=== PATIENT | male | born 1945 | race Caucasian/White ===

== ENCOUNTER 2018-06-24 00:59 | Emergency (ER) | payer MEDICARE, OTHER, SELFPAY ==
[2018-06-24 01:02] VITALS: BP 179/73; PULSE 83; RESP 18; TEMP 36.7; O2SAT 97; BMI 22.4
--- NOTE | 2018-06-24 01:27 | EKG12_ITS ---
Test Reason : NEURO SYMPTOMS Blood Pressure : / mmHG Vent. Rate : 090 BPM Atrial Rate : 090 BPM P-R Int : 148 ms QRS Dur : 106 ms QT Int : 376 ms P-R-T Axes : 053 028 041 degrees QTc Int : 459 ms Sinus rhythm with Premature atrial complexes Nonspecific T wave abnormality Abnormal ECG Confirmed by MARCIO DE LEON ([id number]), social media editor VIRGINIA DUENAS ([id number]) on 06/28/2018 2:10:45 PM Referred By: ZARIA Confirmed By:CHARLES DE LEON
--- NOTE | 2018-06-24 01:27 | CT_ITS ---
STUDY: CT BRAIN WITHOUT CONTRAST REASON FOR EXAM: Male, 73 years old. Weakness, difficulty swallowing RADIATION DOSAGE (If Supplied By Facility): CTDIvol = ( 44.99 ) mGy, DLP = ( 745.49 ) mGycm TECHNIQUE: Transaxial CT imaging of the brain was performed without administration of intravenous contrast material. Individualized dose optimization techniques were used for this CT. COMPARISON: No relevant priors. FINDINGS: Normal soft tissue structures. Normal calvarium. Normal size ventricles and extra-axial spaces for the patient's age. There are areas of decreased attenuation within the white matter tracts of the supratentorial brain, consistent with microvascular disease changes. Normal basal ganglia and thalami. Normal brainstem. Normal cerebellum. There is no intracranial hemorrhage. There are no findings of an acute ischemic infarction. 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 The bilateral mastoid air cells are clear.. CT/Brain/Head without Contrast IMPRESSION: Chronic involutional changes of the brain. There is no acute intracranial pathology. Electronically Signed: Laurel Sparrow MD at 2:57 EDT , Service support ,
--- NOTE | 2018-06-24 01:28 | CT_ITS ---
STUDY: CT SOFT TISSUE NECK WITH CONTRAST REASON FOR EXAM: Male, 73 years old. Weakness, difficulty swallowing TECHNIQUE: The patient was scanned in a multi-detector CT scanner. High resolution transaxial imaging was performed following intravenous administration of 100ML IV Isovue 300. Sagittal and coronal images were reconstructed. Streak artifact caused by the dental hardware. Individualized dose optimization techniques were used for this CT. COMPARISON: None. FINDINGS: Normal bilateral parotid glands. Normal bilateral fruit harvester spaces. Normal bilateral parapharyngeal spaces. Normal bilateral carotid spaces. Normal bilateral sublingual and submandibular glands and spaces. Normal visualized nasopharynx. Normal retropharyngeal space. Normal perivertebral space. Normal visualized bilateral faucial tonsils. The visualized tongue, tongue base and oropharynx are normal. The visualized cervical lymph nodes (levels I-) are within normal size limits, and maintain normal morphology. There is no demonstrated solid or cystic mass lesion. There is no abnormal contrast enhancement. Normal epiglottis, bilateral vallecula and hypopharynx. The pre-epiglottic and paraglottic adipose spaces are normal. Normal visualized right piriform sinuses, bilateral aryepiglottic folds, vocal cords, and arytenoid-cricoid articulations. Minimal effacement of the left piriform sinus. Normal subglottic trachea. Normal bilateral lobes of the thyroid gland. Normal visualized pulmonary apices. Aplastic right frontal sinus. Minimal mucosal thickening of the left maxillary antrum. The bilateral mastoid air cells are clear. There is multilevel degenerative changes of the cervical spine. There is demineralization of osseous structures. Left vertebral artery is arising directly from the aortic arch is a vascular variant. CT/Soft Tissue Neck WITH Contrast IMPRESSION: Minimal effacement of the left piriform sinus. Etiology indeterminate. Consultation with ENT recommended. No abscess, collection or airway compromise. Other nonacute findings as outlined above. Electronically Signed: Laurel Sparrow MD at 3:04 EDT , Service support ,
[2018-06-24 01:43] LABS: Absolute Lymphocyte Count 1.24 X10^3/ul (0.83-4.51); Absolute Neutrophil Count 3.9 X10^3/uL (2.0-7.7); Basophil# 0.01 X10^3/uL; Basophil% 0.2 % (0-1); Eosinophil# 0.05 X10^3/uL; Eosinophils% 0.9 % (0-5); Hematocrit 45.5 % (40-54); Hemoglobin 15.3 g/dl (13.0-16.5); Lymphocyte # 1.24 X10^3/ul (4.0); Lymphocyte % 22.1 % (19-41); Mean Corp Hgb Conc 33.6 g/gl (32-36); Mean Corpuscular Hgb 29.7 pg (27.0-32.0); Mean Corpuscular Volume 88.2 fL (80-94); Mean Platelet Vol. 9.9 fl (6.2-12.0); Monocyte# 0.37 X10^3/uL; Monocyte% 6.6 % (0-10); Neutrophil # 3.93 X10^3/uL (2.7-7.7); Neutrophil % 70.2 % (47-70); Platelet Count 173 K/mm3 (150-450); RBC Distribution Width CV 13.6 % (11.6-14.6); RBC Distribution Width SD 43.7 fl (35.1-43.9); Red Blood Count 5.16 M/mm3 (4.6-6.2); White Blood Count 5.6 K/mm3 (4.4-11.0)
[2018-06-24 01:44] LABS: POSITIVE COUNT NO; POSITIVE DIFFERENTIAL NO; POSITIVE MORPHOLOGY NO
[2018-06-24 02:12] LABS: Anion Gap 9 (5-15); BUN 18 mg/dL (7-18); BUN/Creat Ratio 19.7 RATIO (10-20); Calcium,Total 9.2 mg/dL (8.5-10.1); Chloride 106 mmol/L (98-107); Creatinine, Serum 0.92 mg/dL (0.70-1.30); EST Glomerular Filtration Rate 86 mL/min (>60); Est Glom Filt Rate - Afr Amer 104 mL/min (>60); Estimated Creatinine Clearance 56.69 ml/min; Glucose 94 mg/dL (74-106); Potassium 3.8 mmol/L (3.5-5.1); Sodium Level 141 mmol/L (136-145)
--- NOTE | 2018-06-24 02:21 | ED.VISSUMM ---
- ER Visit Summary Date of Service: 06/24/18 Chief Complaint: Difficulty swallowing History of Present Illness: The patient is a 73 M with a 2-week history of difficulty swallowing. Patient states he had cold symptoms for approximately 6 weeks and about the time they started to improve he started noting difficulty swallowing. He also noted increased salivation. He states he feels like things get caught in his throat when he tries to swallow. He denies speech difficulty. He was seen by nurse practitioner at his PCPs office today who recommended a special mouthwash and Flonase. Symptoms seemed worse tonight so he came to the emergency room. Physical Examination: Blood pressure is 179/73, otherwise vitals normal. Patient is lying in bed with his head elevated approximately 45 degrees. He speaks with a strong voice and is tolerating secretions well. Head neck examination is unremarkable. Heart is regular rate and rhythm. Lung sounds are clear. Abdomen is soft and nontender. Neuro exam reveals an NIH of 0. Test Results: EKG is sinus at 90 with no sign of acute ischemia. CBC and chemistry studies are normal. CT brain shows chronic involutional changes. CT neck with IV contrast reveals minimal effacement of the left piriform sinus, etiology indeterminate. There is no evidence of abscess or airway compromise. No other abnormalities. Emergency Department Course and Treatment: On repeat evaluation patient is resting comfortably. Nursing staff did do a bedside swallow with him. He was able to swallow the applesauce, but states he feels like it got stuck in the back of his throat. He is able to drink water and get it to clear. Nursing staff advises there is no coughing or clearing of his throat to suggest aspiration. At this time patient be referred to ENT for close follow-up. Treatment Plan: [] Disposition: Discharge Impression: Dysphasia This note was generated with Case [employer]over dictation software. It may contain incorrect words, spelling, and punctuation that were not noted in review of the chart prior to signing ED Disposition - Plan for ED Patient: Disposition: Home or Assisted Living Instructions: Understanding Dysphagia Referrals: Sandip Hunt MD [Primary Care Provider] - Dorian Minaya MD [STAFF PHYSICIAN] - As soon as possible
[2018-06-24 03:08] VITALS: BP 153/80; PULSE 75; RESP 12; O2SAT 97
--- NOTE | 2018-06-24 03:41 | ED.RN ---
PT STATES SOME OF THE APPLE SAUCE STICKS IN THE BACK. PT DRINKS WATER AND NO LONGER C/O ISSUES. NO COUGH, CLEARING THE THROAT. NO DIFFICULTY WITH THE WATER. ONE SWALLOW OF WATER EACH TIME AND PT REPORT APPLE SAUCE GOING DOWN. DR ENCISO NOTIFIED
[2018-06-24 03:56] VITALS: BP 171/97; PULSE 79; RESP 13; O2SAT 95
== END 2018-06-24 03:57 | disposition home or self-care (01) ==
PROVIDERS: Emergency Provider Emergency Medicine; Family Provider Family Medicine; PCP Family Medicine
DX: R47.02 Dysphasia (principal)
CPT/HCPCS: 70450; 70491; 80048; 85025; 93005; 99284; Q9967; A4216

== ENCOUNTER 2020-05-05 08:23 | Emergency (ER) | payer MEDICARE, OTHER, SELFPAY ==
[2020-05-05 08:24] VITALS: BP 182/93; PULSE 69; RESP 17; TEMP 36.6; O2SAT 97; BMI 23.6
--- NOTE | 2020-05-05 08:36 | ED.DCSUM_ITS ---
History of Present Illness Chief Complaint: Flank Pain Informant: Patient Narrative: 74-year-old male presenting with left flank pain that radiates to his left groin. Patient states this started yesterday about 1 PM. The pain waxes and wanes. He states it feels sharp like previous kidney stone he had distantly. He does not have a urologist. He denies dysuria or hematuria. He denies constipation or diarrhea. Has not had fever or chills. He denies nausea or vomiting. Past Medical History - Allergies and Home Meds Allergies/Adverse Reactions: Allergies acetaminophen [From NyQuil] Allergy (Verified 05/05/20 08:24) Other dextromethorphan [From NyQuil] Allergy (Verified 05/05/20 08:24) Other doxylamine [From NyQuil] Allergy (Verified 05/05/20 08:24) Other pseudoephedrine [From NyQuil] Allergy (Verified 05/05/20 08:24) Other Sulfa (Sulfonamide Antibiotics) Allergy (Verified 05/05/20 08:24) Hives Primary Care Physician: Sandip Hunt MD [Primary Care Provider] - Prior records reviewed: Yes Past Medical History: - - Renal calculi Surgical History: - - Lithotripsy Lives: Alone Smoking Status: Never smoker Alcohol: None Drugs: None Review of Systems General: Denies: Chills, Fever, Sweats Eyes: Denies: Visual changes - bilaterally, Diplopia ENT: Denies: Rhinorrhea, Sore throat Cardiovascular: Denies: Chest pain, Palpitations Respiratory: Denies: Dyspnea, Cough, Dyspnea on exertion Gastrointestinal: Denies: Abdominal pain, Nausea, Vomiting, Diarrhea, Constipation Genitourinary: Denies: Dysuria, Hematuria Musculoskeletal: Reports: Back pain - Left flank. Denies: Myalgias, Arthralgias Skin: Denies: Rash, Abscess, Abrasions Neurological: Denies: Headache, Weakness Psych: Denies: Depression, Anxiety Physical Exam Vital Signs/Narrative: Vital Signs Temp Pulse Resp BP Pulse Ox 05/05/20 08:24 97.9 F 69 17 182/93 H 97 General: Well nourished, Well developed, No Acute Distress Head: Normocephalic, Atraumatic Eyes: Perrl, EOMI ENT: Moist mucous membranes, No rhinorrhea Neck: Supple, Nontender Cardiovascular: Regular rate, Regular rhythm, No murmurs Respiratory: No distress, CTA bilaterally, Chest nontender Abdomen: Soft, Nontender, Nondistended, Normal bowel sounds Back: CVA tenderness. Negative for: Spinal tenderness Extremities: Nontender, No edema Skin: Normal color, No rash Neurological: Alert, Oriented x3, Cranial nerves II-XII grossly intact Psychological: Normal affect, Normal Mood Diagnostic/Tx/Re-eval Clinical Impression(s) from Imaging Studies Abdomen/Pelvis CT 05/05/20 09:08 IMPRESSION: 1. 3 mm obstructing stone at the left ureterovesical junction with moderate ureteral dilatation and hydronephrosis. 2. Suspect gastroenteritis or sclerosing mesenteritis. 3. Left periaortic lymphadenopathy possibly reactive or secondary to the tumor including metastatic disease or lymphoma. Correlation with PET CT scan may be useful. Electronically Signed: James Gray MD at 9:40 EST Tel , Service support , Laboratory Data 05/05/20 05/05/20 05/05/20 08:46 08:46 09:10 WBC 6.7 RBC 5.64 Hgb 16.5 Hct 50.9 MCV 90.2 MCH 29.3 MCHC 32.4 RDW Std Deviation 43.2 RDW Coeff of Benja 13.2 Plt Count 148 L MPV 9.9 Immature Gran % (Auto) 0.300 Neut % (Auto) 70.2 H Lymph % (Auto) 17.1 L [place] % (Auto) 12.3 H Eos % (Auto) 0.0 Baso % (Auto) 0.1 Absolute Neuts (auto) 4.7 Absolute Lymphs (auto) 1.14 Nucleated RBC % 0 Sodium 139 Potassium 4.0 Chloride 104 Carbon Dioxide 28.0 Anion Gap 7 BUN 20 H Creatinine 1.74 H Estim Creat Clear Calc 29.52 Est GFR (MDRD) Af Amer 49 L Est GFR (MDRD) Non-Af 41 L BUN/Creatinine Ratio 11.5 Glucose 106 Calcium 9.7 Urine Color Yellow Urine Clarity Clear Urine pH 6.0 Ur Specific [place] 1.025 Urine Protein Negative Urine Glucose (UA) Normal Urine Ketones 50 H Urine Occult Blood 25 H Urine Nitrite Negative Urine Bilirubin Negative Urine Urobilinogen Normal Ur Leukocyte Esterase 500 H Urine RBC 0 SEEN Urine WBC 5-10 SEEN Ur Squamous Epith Cells 0-5 SEEN Urine Bacteria RARE Urine Mucus 0 SEEN - Medical Decision Making 74-year-old male presenting with left flank pain. He has no nausea. He states he has no other symptoms. He is eating and drinking normally. He is making normal urine and stool. Patient has been afebrile. Patient has distant history of renal calculi and had to have lithotripsy. CBC shows white blood cell count 6.7 hemoglobin 16.5 platelets 148 and previously 173 in 2019. Electrolytes are normal, creatinine is 1.74 and has increased from 0.92 since 06/2014. GFR is also decreased from 86-41 since the same date. UA is negative for nitrites there is 25 and occult blood, 500 leukocyte esterase and rare bacteria. Patient CT abdomen pelvis shows a 3 mm obstructing stone at the left UVJ with some mild ureteral dilatation as well as hydronephrosis which is mild as interpreted by radiology. Patient also has suspicious left periaortic lymphadenopathy that the radiologist feels could be reactive however does not rule out a tumor or metastatic disease versus lymphoma. I did speak with the radiologist and he states that this was abnormal he is not sure what the source would be however he speculated possibly colon cancer, prostate cancer, testicular cancer. Patient is not having any difficulty with stool, testicular pain, difficulty urinating. he has not had perirectal pain. I did speak with Dr. Fox who is on-call for Sandip Hunt. Patient does have acute kidney injury from previous however it does not appear to be prerenal azotemia. Likely this could be from his elevated blood pressure. Dr. Fox did feel that we could start him on amlodipine 10 mg and he could follow-up with him or Sandip Hunt on Thursday for repeat evaluation. He will also arrange follow-up for possible PET scan due to abnormal lymph node finding on Thursday as well. He was counseled to keep a blood pressure diary as best that he can. Patient does have a kidney stone and will be given follow-up with Dr. Linton. He does have some suspicion for infection he will be given Keflex, [place]. I will withhold Flomax at this time due to JAYCOB. This is small and will likely pass. Patient and family were informed of all findings. They are comfortable with discharge. They are given return precautions. Impression: 1. 3 mm left VJ stone 2. UTI 3. Hypertension?new begin treatment 4. Acute kidney injury 5. Abnormal CT abdomen pelvis ED Disposition - Plan for ED Patient: Disposition: Home or Assisted Living Instructions: ED Kidney Stone w/ Colic, ED Urinary Tract Infections in Men, Kidney Problems, ED Hypertension, New (Begin Treatment) Prescriptions: Cephalexin [Keflex] 500 mg PO Q6 #40 cap Prescription Printed Hydrocodone Bitart/Apap 5-325 [[place] 5MG-325MG] 1 tablet PO Q6H PRN PRN 3 Days #12 tablet PRN Reason: Pain Amlodipine [Norvasc] 10 mg PO DAILY #30 tab Prescription Printed Referrals: Sandip Hunt MD [Primary Care Provider] - Manish Linton MD [STAFF PHYSICIAN] -
[2020-05-05 08:54] LABS: Absolute Lymphocyte Count 1.14 X10^3/uL (0.83-4.51); Absolute Neutrophil Count 4.7 X10^3/uL (2.0-7.7); Basophil# 0.01 X10^3/uL; Basophil% 0.1 % (0-1); Hematocrit 50.9 % (40-54); Hemoglobin 16.5 g/dL (13.0-16.5); Lymphocyte # 1.14 X10^3/ul (4.0); Lymphocyte % 17.1 % (19-41); Mean Corp Hgb Conc 32.4 g/dL (32-36); Mean Corpuscular Hgb 29.3 pg (27.0-32.0); Mean Corpuscular Volume 90.2 fL (80-94); Mean Platelet Vol. 9.9 fl (6.2-12.0); Monocyte# 0.82 X10^3/uL; Monocyte% 12.3 % (0-10); NRBC Flagged by Analyzer 0 % (0-5); Neutrophil # 4.68 X10^3/uL (2.7-7.7); Neutrophil % 70.2 % (47-70); Platelet Count 148 K/mm3 (150-450); RBC Distribution Width CV 13.2 % (11.6-14.6); RBC Distribution Width SD 43.2 fl (35.1-43.9); Red Blood Count 5.64 M/mm3 (4.6-6.2); White Blood Count 6.7 K/mm3 (4.4-11.0)
[2020-05-05] MEDS: Ondansetron 4 MG/2 ML Vial IV (08:56)
[2020-05-05] MEDS: Ketorolac 15 MG/ML Vial IV (08:56)
[2020-05-05] MEDS: Morphine 4 MG/ML Syringe IV (08:57)
[2020-05-05 09:04] VITALS: BP 204/111; PULSE 76; RESP 16; O2SAT 98
[2020-05-05 09:04] LABS: Anion Gap 7 (5-15); BUN 20 mg/dL (7-18); BUN/Creat Ratio 11.5 RATIO (10-20); Calcium,Total 9.7 mg/dL (8.5-10.1); Chloride 104 mmol/L (98-107); Creatinine, Serum 1.74 mg/dL (0.70-1.30); EST Glomerular Filtration Rate 41 mL/min (>60); Est Glom Filt Rate - Afr Amer 49 mL/min (>60); Estimated Creatinine Clearance 29.52 ml/min; Glucose 106 mg/dL (74-106); Sodium Level 139 mmol/L (136-145)
--- NOTE | 2020-05-05 09:08 | CT_ITS ---
STUDY: CT ABDOMEN AND PELVIS WITHOUT CONTRAST REASON FOR EXAM: Male, 74 years old. left flank pain RADIATION DOSAGE (If Supplied By Facility): CTDIvol = ( 6.08 ) mGy, DLP = ( 285.78 ) mGycm TECHNIQUE: Transaxial images were obtained from the dome of the diaphragm to the symphysis pubis without oral contrast, and without intravenous contrast. Sagittal and coronal images were reconstructed. Individualized dose optimization techniques were used for this CT. COMPARISON: None. FINDINGS: The visualized lung bases are unremarkable. The visualized portions of the heart are within normal limits. Normal liver. Normal gallbladder and extrahepatic biliary system. Normal spleen. Normal pancreas. Normal bilateral adrenal glands. 2 mm nonobstructing stone in the upper pole the right kidney. 3 mm obstructing stone at the left ureterovesical junction with moderate ureteral dilatation and hydronephrosis. Parapelvic cysts of both kidneys. Normal visualized stomach. Several small lymph nodes in the stranding of the fat of the small bowel mesentery in the left upper quadrant may be secondary to gastroenteritis or sclerosing mesenteritis. Normal colon. The appendix is visualized and appears normal. Normal abdominal aorta. Normal inferior vena cava. Periaortic lymphadenopathy measuring 3 x 3 cm. Normal urinary bladder. There are prostatic calcifications. Normal abdominal wall. Normal osseous structures. CT/Abdomen/Pelvis without Cont IMPRESSION: 1. 3 mm obstructing stone at the left ureterovesical junction with moderate ureteral dilatation and hydronephrosis. 2. Suspect gastroenteritis or sclerosing mesenteritis. 3. Left periaortic lymphadenopathy possibly reactive or secondary to the tumor including metastatic disease or lymphoma. Correlation with PET CT scan may be useful. Electronically Signed: James Gray MD at 9:40 EST Tel , Service support ,
[2020-05-05 09:21] LABS: Mucous, Urine 0 SEEN /hpf (<or=2+); Red Blood Cells-Urine 0 SEEN /hpf (0-5)
[2020-05-05 09:45] LABS: Color, Urine Yellow (Yellow); Glucose, Dipstick Normal (Normal); Ketone-Dipstick 50 mg/dl (Negative); Leukocyte Esterase-Dipstick 500 /ul (Negative); Nitrite-Dipstick Negative (Negative); Occult Blood-Urine 25 /ul (Negative); Protein-Dipstick Negative (Negative); Specific Gravity, Urine 1.025 (1.002-1.030); Urine Bilirubin Dipstick Negative (Negative); Urine Clarity Clear (Clear); Urine Urobilinogen Normal (Normal)
[2020-05-05 09:52] LABS: Bacteria RARE /hpf (None Seen); Squamous Epithelial Cells - UA 0-5 SEEN /hpf (0-5); White Blood Cells 5-10 SEEN /hpf (0-5)
--- NOTE | 2020-05-05 10:02 | NURSING ---
ATTEMPTING TO REACH RADIOLOGY DR THAT READ CT.
--- NOTE | 2020-05-05 10:18 | NURSING ---
DR THOMPSON PAGED OC FOR DR VEGA
[2020-05-05] MEDS: HYDROcodone Bitartrate/Apap 5/325 Tablet PO (11:14)
[2020-05-05] MEDS: amLODIPine 10 MG Tablet PO (11:14)
[2020-05-05] MEDS: Cephalexin 250 MG Capsule 500 MG PO (11:14)
[2020-05-05 11:19] VITALS: BP 166/75; PULSE 70; RESP 16; O2SAT 98
[2020-05-05 11:36] VITALS: BP 189/83; PULSE 70; RESP 18; O2SAT 97
== END 2020-05-05 11:37 | disposition home or self-care (01) ==
PROVIDERS: Emergency Provider Student in an Organized Health Care Education/Training Program; PCP Family Medicine
DX: N13.2 Hydronephrosis with renal and ureteral calculous obstruction (principal); N39.0 Urinary tract infection, site not specified; N17.9 Acute kidney failure, unspecified; I10 Essential (primary) hypertension; Z87.442 Personal history of urinary calculi; Z88.2 Allergy status to sulfonamides
CPT/HCPCS: 74176; 80048; 81001; 85025; 96374; 96375; 99283; A4216; J2405

== ENCOUNTER → 2020-05-14 13:00 | Outpatient (CLI) | payer MEDICARE, OTHER, SELFPAY ==
[2020-05-14 12:37] VITALS: BMI 22.1
[2020-05-14 13:34] LABS: Erythrocyte Sedimentation Rate 5 mm/hr (0-20)
[2020-05-14 13:35] LABS: Absolute Lymphocyte Count 1.12 X10^3/uL (0.83-4.51); Absolute Neutrophil Count 3.8 X10^3/uL (2.0-7.7); Basophil# 0.06 X10^3/uL; Basophil% 1.1 % (0-1); Eosinophil# 0.12 X10^3/uL; Eosinophils% 2.1 % (0-5); Hematocrit 49.4 % (40-54); Hemoglobin 15.8 g/dL (13.0-16.5); Lymphocyte # 1.12 X10^3/ul (4.0); Lymphocyte % 19.8 % (19-41); Mean Corpuscular Hgb 28.8 pg (27.0-32.0); Mean Corpuscular Volume 90.1 fL (80-94); Mean Platelet Vol. 10.2 fl (6.2-12.0); Monocyte# 0.54 X10^3/uL; Monocyte% 9.6 % (0-10); NRBC Flagged by Analyzer 0 % (0-5); Neutrophil % 67.2 % (47-70); Platelet Count 196 K/mm3 (150-450); RBC Distribution Width CV 12.7 % (11.6-14.6); RBC Distribution Width SD 42.3 fl (35.1-43.9); Red Blood Count 5.48 M/mm3 (4.6-6.2); White Blood Count 5.7 K/mm3 (4.4-11.0)
[2020-05-14 14:03] LABS: ALB/GLOB Ratio 1.2 RATIO (0.9-2.4); AST(SGOT) 16 U/L (15-37); Alanine Aminotransfer ALT/SGPT 28 U/L (16-61); Albumin, Serum 3.9 g/dL (3.2-5.0); Alkaline Phosphatase 68 U/L (45-117); Anion Gap 1 (5-15); BUN 16 mg/dL (7-18); BUN/Creat Ratio 16.6 RATIO (10-20); CRP < 2.90 mg/L (0.0-3.0); Calcium,Total 9.5 mg/dL (8.5-10.1); Chloride 109 mmol/L (98-107); Creatinine, Serum 0.96 mg/dL (0.70-1.30); EST Glomerular Filtration Rate 81 mL/min (>60); Est Glom Filt Rate - Afr Amer 98 mL/min (>60); Globulin 3.3 g/dL (2.2-4.2); Glucose 108 mg/dL (74-106); Lipase 96 U/L (73-393); PSA,Total - Annual Screen 1.83 ng/mL (0.00-4.00); Potassium 4.2 mmol/L (3.5-5.1); Protein, Total 7.2 g/dL (6.4-8.2); Sodium Level 141 mmol/L (136-145); Thyroid Stim Hormone (TSH) 1.13 uIU/mL (0.358-3.74)
[2020-05-16 16:51] LABS: ANTINUCLEAR ANTIBODIES DIRECT Negative (Negative)
== END ==
PROVIDERS: PCP Family Medicine; Referring Provider Surgery; Visit Provider Surgery
DX: R13.10 Dysphagia, unspecified (principal); R59.1 Generalized enlarged lymph nodes; Z12.5 Encounter for screening for malignant neoplasm of prostate
CPT/HCPCS: 36415; 80053; 83690; 84153; 84443; 85025; 85652; 86038; 86140; G0103

== ENCOUNTER 2020-05-18 09:12 | Day surgery (SDC) | payer MEDICARE, OTHER, SELFPAY ==
[2020-05-14 12:37] VITALS: BMI 22.1
--- NOTE | 2020-05-18 09:25 | PCM.HP.BLA ---
Problem List (1) Lymphadenopathy Status: Acute History and Physical Date of Admission: 05/18/20 Intake Visit Reasons: Discuss Colonoscopy Allergies dextromethorphan [From NyQuil] Allergy (Verified 05/14/20 12:38) Other doxylamine [From NyQuil] Allergy (Verified 05/14/20 12:38) Other pseudoephedrine [From NyQuil] Allergy (Verified 05/14/20 12:38) Other Sulfa (Sulfonamide Antibiotics) Allergy (Verified 05/14/20 12:38) Hives Medications Multivitamin with Minerals [Multiple Vitamin] 1 tablet PO DAILY 06/24/18 [History Confirmed 05/14/20] Amlodipine [Norvasc] 10 mg PO DAILY #30 tab 05/05/20 [Rx Confirmed 05/14/20] Cephalexin [Keflex] 500 mg PO Q6 #40 cap 05/05/20 [Rx Confirmed 05/14/20] aspirin 81 mg tablet,delayed release 81 mg PO DAILY 05/14/20 [History Confirmed 05/14/20] coenzyme Q10 100 mg capsule 100 mg PO DAILY 05/14/20 [History Confirmed 05/14/20] hydrocodone 10 mg-acetaminophen 325 mg tablet 1 tablet PO QHS PRN 05/14/20 [History Confirmed 05/14/20] psyllium husk 0.4 gram capsule 0.4 gm PO DAILY 05/14/20 [History Confirmed 05/14/20] sennosides 8.6 mg-docusate sodium 50 mg capsule 1 tab-cap PO QHS 05/14/20 [History Confirmed 05/14/20] valsartan 80 mg tablet 80 mg PO DAILY 05/14/20 [History Confirmed 05/14/20] [facility] Medical History (Updated 05/14/20 @ 12:48 by Shavonne Wiggins) Lymphadenopathy (Acute) Dysphagia (Acute) Constipation (Acute) Kidney stone on left side (Acute) Mesenteric adenitis (Acute) Hypertension (Chronic) Surgical History (Updated 05/14/20 @ 12:36 by Shavonne Wiggins) History of tonsillectomy and adenoidectomy (Acute) Family History (Updated 05/14/20 @ 12:37 by Shavonne Wiggins) Brother Heart disease Hypertension Father Lung cancer Mother Heart disease Hypertension CVA (cerebral vascular accident) Social History (Updated 05/14/20 @ 12:[address] Rell Griggs MD) Smoking Status: Never smoker second hand exposure: No alcohol intake: never substance use type: does not use caffeine: Yes what type of physical activity do you participate in: bicycling frequency: 3-4 times per week HPI HPI HPI: EDILSON JACKSON, is a 74 M who presents to the office today for surgical consultation regarding resolve left flank pain with suspected kidney stone albeit with left periaortic adenopathy identified at that time. The patient is referred by Dr. Sandip Hunt and a written copy of my surgical consult and recommendations will be returned to him. The patient otherwise feels well. The left flank pain is resolved. He was treated with oral antibiotics cephalexin and pain medication. He has had a previous remote history of left kidney stones treated remotely. He currently denies any flank pain. He recognizes he may not stay as hydrated. The CT scan dated May 05, 2020 however demonstrates 3 x 3 cm left periaortic adenopathy. Etiology is not clear. The patient denies fever or chills or sweats or unexpected weight loss. His abdominal pain is completely resolved. He has no family history of colon polyps or colon cancer. He has never had a colonoscopy. He is not having bright red blood per rectum or melena. He otherwise feels energetic The patient states that he has not been a tobacco user. He rarely uses alcohol. [facility] Imaging Services [address] [place] [address] Abdomen/Pelvis without Cont MR#: [id number] Name: EDILSON JACKSON [facility] #:[id number] : 1945M 74 From: Edilson Gray MD PCP:Dr. Sandip Hunt MD Status:[facility] ER Study:Abdomen/Pelvis without Cont Date of Exam:05/05/20 Exam#[id number] Ordering Dr: Ayden Trammell DO STUDY: CT ABDOMEN AND PELVIS WITHOUT CONTRAST REASON FOR EXAM: Male, 74 years old. left flank pain RADIATION DOSAGE (If Supplied By Facility): CTDIvol = ( 6.08 ) mGy, DLP = ( 285.78 ) mGycm TECHNIQUE: Transaxial images were obtained from the dome of the diaphragm to the symphysis pubis without oral contrast, and without intravenous contrast. Sagittal and coronal images were reconstructed. Individualized dose optimization techniques were used for this CT. COMPARISON: None. FINDINGS: The visualized lung bases are unremarkable. The visualized portions of the heart are within normal limits. Normal liver. Normal gallbladder and extrahepatic biliary system. Normal spleen. Normal pancreas. Normal bilateral adrenal glands. 2 mm nonobstructing stone in the upper pole the right kidney. 3 mm obstructing stone at the left ureterovesical junction with moderate ureteral dilatation and hydronephrosis. Parapelvic cysts of both kidneys. Normal visualized stomach. Several small lymph nodes in the stranding of the fat of the small bowel mesentery in the left upper quadrant may be secondary to gastroenteritis or sclerosing mesenteritis. Normal colon. The appendix is visualized and appears normal. Normal abdominal aorta. Normal inferior vena cava. Periaortic lymphadenopathy measuring 3 x 3 cm. Normal urinary bladder. There are prostatic calcifications. Normal abdominal wall. Normal osseous structures. CT/Abdomen/Pelvis without Cont IMPRESSION: 1. 3 mm obstructing stone at the left ureterovesical junction with moderate ureteral dilatation and hydronephrosis. 2. Suspect gastroenteritis or sclerosing mesenteritis. 3. Left periaortic lymphadenopathy possibly reactive or secondary to the tumor including metastatic disease or lymphoma. Correlation with PET CT scan may be useful. Electronically Signed: Edilson Gray MD at 9:40 EST Tel , Service support , HPI HPI HPI: EDILSON MANUEL, is a 74 M who presents to the office today for Exam Const General: cooperative, healthy appearing, comfortable, no acute distress Nutritional Appearance: average body habitus Orientation: alert, awake [facility] Head: normal to inspection Eyes General: appearance normal, both eyes and all related structures Resp Effort & Inspection: normal respiratory effort Auscultation: clear to auscultation bilaterally Cardio Rate: regular rate GI Palpation: soft, no hepatosplenomegaly Auscultation: normal bowel sounds Musc Cervical Spine: normal cervical lordosis Skin General: no rashes or lesions noted Neuro Cognition: normal cognition Extrem General: no calf tenderness Psych Affect: normal affect Assessment & Plan Problems 1. Lymphadenopathy R59.1 Plan 74-year-old gentleman who had an episode of left flank pain felt to be secondary to obstructive ureteral lithiasis. There is a 3 x 3 cm left periaortic lymph node advantage of etiology. I concur that it seems reasonable to proceed with a colonoscopy with possible biopsy or polypectomy as indicated. The patient is aware of the technique, benefit, risk, alternatives. Laboratory has been ordered as requested per Dr. Hunt's office. We will add a PSA level to that. If the colonoscopy is nonresolving then might consider a CT scan guided biopsy of the periaortic adenopathy. The patient has had an opportunity to ask and have questions answered. We will schedule procedure at his discretion. I very much appreciate the kind opportunity of assisting with the surgical care. Orders Orders: CRP Today R59.1 Lipase Today R59.1 PSA,Total - Annual Screen Today Z12.5 Thyroid Stim Hormone (TSH) Today R13.10, R59.1 CBC W/Diff, Automated Today R59.1 Erythrocyte Sed Rate Today R59.1 ANTINUCLEAR ANTIBODIES DIRECT Today R59.1 Comprehensive Metabolic Profil Today R59.1 Medications New: valsartan 80 mg PO DAILY psyllium husk (Fiber (psyllium husk)) 0.4 grams PO DAILY sennosides-docusate sodium 8.6-50 mg (Senna Plus) 1 tab-cap PO QHS hydrocodone-acetaminophen 10-325 mg ([place]) 1 TAB PO QHS PRN Coding Level of Care Code 64091 Diagnoses Lymphadenopathy R59.1 I have re-examined the patient. There are no clinical changes since date of exam. Procedure Criteria Procedure Type: Elective COVID Risk Discussion: The surgeon/proceduralist and patient have discussed in detail the risk of exposure to and/or potential harm posed by the COVID-19 virus with having a surgery/procedure at this time versus the risk of delaying the surgery/procedure. It is not possible to know either the risk of delaying the surgery or procedure or chance of getting an infection with perfect accuracy, but a joint decision was made between the patient and the surgeon/proceduralist to proceed at this time with the scheduled surgery/procedure as indicated on the consent form.
[2020-05-18 09:51] VITALS: BP 132/67; PULSE 71; RESP 14; TEMP 37.2; O2SAT 100; BMI 22.9
[2020-05-18] MEDS: Lactated Ringers 1,000 ML 100 ML IV (10:05)
--- NOTE | 2020-05-18 10:15 | COLBX_PTH ---
PATIENT: EDILSON JACKSON LOC: EN U#:[id number] AGE/SX: 75/M ROOM: RE05/18/[address]: Dr. Rell Griggs MD : 1945 BED: DIS: 05/18/2020 SPEC #: [id number] RECD: 05/18/20 11:46 STATUS: BIA AVINASH #: [id number] JUSTIN: 05/18/20 10:[address]: Rell Griggs DEPT: SURGICAL PATHOLOGY RECD BY: Kenzie Perkins ENTERED: 05/18/20 12:30 SP TYPE: COLON BX DINO DR: Dr. Sandip Hunt MD Tissues: A - Transverse colon B - Transverse colon Procedures: Surgery Specimen Level IV HEADER OPERATION: Colonoscopy (MAC) PRE-OP DIAGNOSIS: Lymphadenopathy TISSUE SUBMITTED: A - Polyp proximal transverse biopsy, B - Mid transverse biopsy MICROSCOPIC DIAGNOSIS A. Proximal transverse colon polyp, biopsy: Fragments of tubular adenoma. B. Mid transverse colon, biopsy: Fragments of tubular adenoma. AM:dov 05/21/2020 MICROSCOPIC DESCRIPTION Slides are reviewed. GROSS DESCRIPTION A - Received in fixative is one container labeled with the patient's name and designated polyp proximal transverse biopsy. The specimen consists of two irregular fragments of light gabriel soft tissue that in aggregate measure 0.6 x 0.2 x 0.1 cm. The specimen is totally submitted in one cassette. B - Received in fixative is one container labeled with the patient's name and designated mid transverse biopsy. The specimen consists of one irregular fragment of light gabriel soft tissue that measures 0.3 x 0.3 x 0.1 cm. The specimen is totally submitted in one cassette. / SJ:dov 05/18/20 TC:5 CPT: 47908 x2
[2020-05-18 10:57] VITALS: BP 128/58; BP 132/67; PULSE 81; RESP 18; TEMP 36.1; O2SAT 99
[2020-05-18 11:00] VITALS: BP 132/67; BP 132/79; PULSE 74; RESP 16; O2SAT 99
--- NOTE | 2020-05-18 11:03 | OP.COLON_ITS ---
Patient Name: James Joyner Procedure Date: 05/18/2020 10:24 AM Date of : 1945 Age: 75 Procedure: Colonoscopy Indications: Abdominal pain in the left lower quadrant Providers: Rell Griggs MD Referring MD: Sandip Hunt Medicines: See the Anesthesia note for documentation of the administered medications Patient Profile: Last Colonoscopy: none. The patient's first colonoscopy is today. Complications: No immediate complications. Procedure: Pre-Anesthesia Assessment: - Prior to the procedure, a History and Physical was performed, and patient medications and allergies were reviewed. The patient's tolerance of previous anesthesia was also reviewed. The risks and benefits of the procedure and the sedation options and risks were discussed with the patient. All questions were answered, and informed consent was obtained. Prior Anticoagulants: The patient has taken no previous anticoagulant or antiplatelet agents. ASA Grade Assessment: II - A patient with mild systemic disease. After reviewing the risks and benefits, the patient was deemed in satisfactory condition to undergo the procedure. After I obtained informed consent, the scope was passed under direct vision. Throughout the procedure, the patient's blood pressure, pulse, and oxygen saturations were monitored continuously. The Colonoscope was introduced through the anus and advanced to the cecum, identified by appendiceal orifice and ileocecal valve. The colonoscopy was performed without difficulty. The patient tolerated the procedure well. The quality of the bowel preparation was good. The ileocecal valve and the appendiceal orifice were photographed. Scope In: 10:33:53 AM Scope Withdrawal Time 0 hours 10 minutes 1 second Scope Out: 10:53:01 AM Total Procedure Duration Time 0 hours 19 minutes 8 seconds Findings: The digital rectal exam findings include non-thrombosed internal hemorrhoids, internal hemorrhoids that prolapse with straining, but spontaneously regress to the resting position (Grade II), prostate nodules and increased firmness of the prostate. A 4 mm polyp was found in the proximal transverse colon. The polyp was sessile. The polyp was removed with a cold biopsy forceps. Resection and retrieval were complete. A 4 mm polyp was found in the mid transverse colon. The polyp was sessile. The polyp was removed with a cold biopsy forceps. Resection and retrieval were complete. Scattered diverticula were found in the sigmoid colon. Impression: - Non-thrombosed internal hemorrhoids, internal hemorrhoids that prolapse with straining, but spontaneously regress to the resting position (Grade II), prostate nodules and increased firmness of the prostate found on digital rectal exam. - One 4 mm polyp in the proximal transverse colon, removed with a cold biopsy forceps. Resected and retrieved. - One 4 mm polyp in the mid transverse colon, removed with a cold biopsy forceps. Resected and retrieved. - Diverticulosis in the sigmoid colon. Recommendation: - Discharge patient to home. - Resume previous diet. - Continue present medications. - Repeat colonoscopy in 5 years for surveillance based on pathology results. - Telephone my office for pathology results in 1 week. Recommend PSA level in near future secondary to adenopathy and abnormal prostate exam Consider CT biopsy of analy-aortic lymph node if PSA not revealing Procedure Code(s): --- Professional --- 67377, Colonoscopy, flexible; with biopsy, single or multiple Diagnosis Code(s): --- Professional --- N40.2, Nodular prostate without lower urinary tract symptoms N42.9, Disorder of prostate, unspecified D12.3, Benign neoplasm of transverse colon (hepatic flexure or splenic flexure) K64.1, Second degree hemorrhoids R10.32, Left lower quadrant pain K57.30, Diverticulosis of large intestine without perforation or abscess without bleeding CPT copyright 2017 [employer]. All rights reserved. The codes documented in this report are preliminary and upon closing supervisor review may be revised to meet current compliance requirements. Rell Griggs MD 05/18/2020 11:02:43 AM This report has been signed electronically. Number of Addenda: 0 Note Initiated On: 05/18/2020 10:24 AM
--- NOTE | 2020-05-18 11:03 | OP.CCLET_ITS ---
05/18/2020 Sandip Hunt [address] [facility] [place] [address] Re : Colonoscopy procedure for James Joyner Dear Dr. Hunt This procedure was performed on Monday, May 18, 2020. My impressions and recommendations are as follows: Impressions : - Non-thrombosed internal hemorrhoids, internal hemorrhoids that prolapse with straining, but spontaneously regress to the resting position (Grade II), prostate nodules and increased firmness of the prostate found on digital rectal exam. - One 4 mm polyp in the proximal transverse colon, removed with a cold biopsy forceps. Resected and retrieved. - One 4 mm polyp in the mid transverse colon, removed with a cold biopsy forceps. Resected and retrieved. - Diverticulosis in the sigmoid colon. Recommendations : - Discharge patient to home. - Resume previous diet. - Continue present medications. - Repeat colonoscopy in 5 years for surveillance based on pathology results. - Telephone my office for pathology results in 1 week. Recommend PSA level in near future secondary to adenopathy and abnormal prostate exam Consider CT biopsy of analy-aortic lymph node if PSA not revealing My findings are described in the full procedure note, which is enclosed. If I can be of further assistance, please feel free to contact me at Doctor phone number(s): Work: . Sincerely, Rell Griggs MD 05/18/2020 11:02:43 AM This report has been signed electronically.
[2020-05-18 11:05] VITALS: BP 132/67; BP 133/69; PULSE 69; RESP 16; O2SAT 99
[2020-05-18 11:10] VITALS: BP 117/63; BP 132/67; PULSE 69; RESP 16; TEMP 36.2; O2SAT 100
[2020-05-18 11:43] VITALS: BP 132/67
== END 2020-05-18 11:45 | disposition home or self-care (01) ==
LOC: EN 09:13 → AC 09:13
PROVIDERS: PCP Family Medicine; Referring Provider Family Medicine; Visit Provider Surgery
PROC: 0DJD8ZZ Inspection of Lower Intestinal Tract, Via Natural or Artificial Opening Endoscopic (ICD-10-PCS; CPT 45378; principal; 2020-05-18 10:10)
DX: D12.3 Benign neoplasm of transverse colon (principal); K57.30 Diverticulosis of large intestine without perforation or abscess without bleeding; K64.1 Second degree hemorrhoids; N40.2 Nodular prostate without lower urinary tract symptoms; I10 Essential (primary) hypertension; R13.10 Dysphagia, unspecified; Z87.442 Personal history of urinary calculi; Z79.899 Other long term (current) drug therapy; Z79.82 Long term (current) use of aspirin; Z20.828 Contact with and (suspected) exposure to other viral communicable diseases
CPT/HCPCS: 45378; 87426; 88305; C9803; J7120

== ENCOUNTER → 2020-05-23 10:55 | Outpatient (CLI) | payer MEDICARE, OTHER, SELFPAY ==
[2020-05-18 09:51] VITALS: BMI 22.9
[2020-05-23 12:33] LABS: PSA,Total- Diagnostic 2.58 ng/mL (0.0-4.0)
== END ==
PROVIDERS: PCP Family Medicine; Referring Provider Surgery; Visit Provider Surgery
DX: R39.89 Other symptoms and signs involving the genitourinary system (principal)
CPT/HCPCS: 36415; 84153

== ENCOUNTER → 2020-06-12 08:49 | Outpatient (CLI) | payer MEDICARE, OTHER, SELFPAY ==
[2020-05-18 09:51] VITALS: BMI 22.9
[2020-06-12] VITALS (11 sets, daily range): BP systolic 116–169; BP diastolic 52–76; PULSE 64–73; RESP 11–19; TEMP 36.6; O2SAT 96–100; BMI 21.6
--- NOTE | 2020-06-12 09:01 | CT_ITS ---
PROCEDURE: CT GUIDED left retroperitoneal biopsy DATE: 06/12/2020 INDICATION: Male, 75 years old. Left retroperitoneal adenopathy. PHYSICIAN: Derian Gamble M.D. RADIATION DOSAGE (If Supplied By Facility): CTDIvol = ( 6 ) mGy, DLP = ( 278.18 ) mGycm. Individualized dose optimization techniques were utilized. PROCEDURE: The risks, benefits, and alternatives to the procedure were explained to the patient. The specific risk of hemorrhage requiring further treatment or intervention was detailed and accepted. Follow-up instructions were discussed with the patient as well. Written informed consent was obtained. The patient was brought into the CT suite and placed in the prone position. . An appropriate entry site was identified. The overlying skin was prepped and draped in the usual sterile fashion. 1% lidocaine was administered subcutaneously for local anesthesia.. Conscious sedation was performed. The patient received 1 mg of VERSED and 25 mcg of FENTANYL. Conscious sedation was started at 10:09 AM and terminated at 1020 2A the patient was independently monitored by the department nurse. Under CT guidance, a total of 6 passes were performed utilizing an 18-gauge core biopsy needle system The specimens were then placed in the appropriate foot and transported to the laboratory for analysis. Hemostasis was obtained. The patient tolerated the procedure well without immediate complications. CT/Biopsy/Inj or Needle Placement IMPRESSION: Successful CT guided biopsy of the left retroperitoneal lymph nodes, as described above. Conscious sedation protocol was followed. Electronically Signed: Derian Gamble MD at 11:36 EDT , Service support ,
[2020-06-12 09:06] LABS: Platelet Count 188 K/mm3 (150-450)
[2020-06-12 09:14] LABS: Partial Thromboplast Time 25.8 Seconds (24.1-36.2); Prothrombin Time (Protime)PT. 12.8 SECONDS (11.7-14.9)
[2020-06-12] MEDS: Midazolam 2 MG/2 ML Syringe IV (10:09)
[2020-06-12] MEDS: fentaNYL 100 MCG/2 ML Ampul IV (10:10)
--- NOTE | 2020-06-12 10:20 | IMM_PTH ---
PATIENT: EDILSON JACKSON LOC: [place] U#:[id number] AGE/SX: 79/M ROOM: RE06/12/[address]: Dr. Sandip Hunt MD : 1945 BED: DIS: SPEC #: [id number] RECD: 06/12/20 13:48 STATUS: BIA REQ #: [id number] JUSTIN: 06/12/20 10:[address]: Sandip Hunt DEPT: IMMUNOHISTOCHEMISTRY RECD BY: Magda Ng Tissues: Periaortic tissue Procedures: BCL-2 (add) BCL-6 (add) CD10 (add) CD20 (add) CD23 (add) CD43 (add) CD45 (add) CD5 (add) CD79A (add) CYCLIN (add) KI-67 (add) CD3 (initial) PHYSICIAN & INSTITUTION [place] [id number] SPECIMEN INFORMATION: Tissue Source: Periaortic lymph node biopsy Clinical Info: Lymphadenopathy Specimen Number: [id number] CPT code: 79479, 39476 x11 METHODOLOGY: Deparaffinized sections of prefer/formalin-fixed tissue or PAP/DQ stained slides are incubated with monoclonal/polyclonal antibodies/oligonucleotide probes. Localization is made via biotin free immunoperoxidase method. Appropriate controls are performed and reacted as expected. Results on target cell population are indicated in the following table: RESULTS: ANTIBODY / CLONE RESULT CD3 (PS1) negative CD5 (SP10) negative CD10 (56C6) positive CD20 (L26) positive CD23 (1B12) negative CD43 (L60) negative CD45 (RP2/18) positive CD79a (11E3) positive BCL-2 (bcl-2/100/D5) positive BCL-6 (DD437U/A8) positive Cyclin D1/BCL-1 (SP4) negative Ki-67 (30-9) positive, low These tests were developed and their performance characteristics determined by [facility]. They may not have been cleared or approved by the U.[place]. Food and Drug Administration. The FDA has determined that such clearance or approval is not necessary. The above immunohistochemical/dualISH markers are ordered and reviewed by the Pathologist. INTERPRETATION: Periaortic lymph node biopsy, CT-guided biopsy: Consistent with involvement by non-Hodgkin B-cell lymphoma, favor follicular lymphoma, grade 1. SJ:dov 06/14/2020 Case has been reviewed in consultation with Dr. Aden who concurs with the above diagnosis. IDC:AM
--- NOTE | 2020-06-12 10:30 | ASPIGT_PTH ---
PATIENT: EDILSON JACKSON LOC: CT U#:[id number] AGE/SX: 79/M ROOM: RE06/12/[address]: Dr. Sandip Hunt MD : 1945 BED: DIS: SPEC #: [id number] RECD: 06/12/20 11:00 STATUS: BIA BADonn #: [id number] JUSTIN: 06/12/20 10:[address]: Sandip Hunt DEPT: SURGICAL PATHOLOGY RECD BY: Kenzie Perkins Tissues: Lymph node, NOS Procedures: FNA Specimen Adequacy Special Stain Group II Surgery Specimen Level IV Imprint (control) HEADER OPERATION: CT-guided periaortic lymph node biopsy PRE-OP DIAGNOSIS: Lymphadenopathy TISSUE SUBMITTED: Periaortic lymph node 18-gauge core x6 MICROSCOPIC DIAGNOSIS Periaortic lymph node, CT-guided core biopsy: Consistent with involvement by non-Hodgkin B-cell lymphoma, favor follicular lymphoma, grade 1. Flow cytometry study from [facility] shows low cell yield sample analyzed, a CD10 positive clonal B-cell population is detected. Complete report is viewable in the patient's EMR. See comment. HUY:dov 06/14/2020 COMMENT The specimen is evaluated at the time of biopsy by Dr. Trent. Immediate Evaluation = Numerous small lymphocytes are noted. Immunohistochemistry ([id number]) supports the above diagnosis. Case has been reviewed in consultation with Dr. Aden who concurs with the above diagnosis. IDC:AM MICROSCOPIC DESCRIPTION Slides are reviewed. GROSS DESCRIPTION Received in fixative is one container labeled with the patient's name and designated periaortic lymph node, CT-guided core biopsy. The specimen consists of multiple irregular fragments of gabriel soft tissue that in aggregate measure 1 x 0.1 x 0.1 cm. The entire specimen is submitted in cassette 1 and cell block is also made from the filtered formalin and submitted as 2. A portion of the specimen is also submitted for flow cytometry study. One touch imprint is prepared at the time of core biopsy. / HUY:dov 06/12/20 TC:0 CPT: 43454, 22653
== END ==
PROVIDERS: PCP Family Medicine; Referring Provider Family Medicine; Visit Provider Family Medicine
DX: C85.13 Unspecified B-cell lymphoma, intra-abdominal lymph nodes (principal); C82.03 Follicular lymphoma grade I, intra-abdominal lymph nodes; I10 Essential (primary) hypertension; R13.10 Dysphagia, unspecified; Z82.49 Family history of ischemic heart disease and other diseases of the circulatory system; Z87.442 Personal history of urinary calculi
CPT/HCPCS: 49180; 36415; 77012; 85049; 85610; 85730; 88172; 88305; 88313; 88341; 88342; J7040; A4216

== ENCOUNTER → 2022-06-26 | Outpatient (CLI) | payer MEDICARE, OTHER, SELFPAY ==
[2022-06-26 10:29] LABS: Absolute Lymphocyte Count 1.82 X10^3/uL (0.83-4.51); Absolute Neutrophil Count 2.5 X10^3/uL (2.0-7.7); Basophil# 0.02 X10^3/uL; Basophil% 0.4 % (0-1); Eosinophil# 0.07 X10^3/uL; Eosinophils% 1.4 % (0-5); Hematocrit 49.1 % (40-54); Hemoglobin 15.7 g/dL (13.0-16.5); Lymphocyte # 1.82 X10^3/ul (0.83-4.51); Lymphocyte % 37.3 % (19-41); Mean Corpuscular Hgb 29.3 pg (27.0-32.0); Mean Corpuscular Volume 91.8 fL (80-94); Mean Platelet Vol. 10.6 fl (6.2-12.0); Monocyte# 0.46 X10^3/uL; Monocyte% 9.4 % (0-10); NRBC Flagged by Analyzer 0 % (0-5); Neutrophil % 51.3 % (47-70); Platelet Count 177 K/mm3 (150-450); RBC Distribution Width CV 13.3 % (11.6-14.6); RBC Distribution Width SD 45.1 fl (35.1-43.9); Red Blood Count 5.35 M/mm3 (4.6-6.2); White Blood Count 4.9 K/mm3 (4.4-11.0)
[2022-06-26 11:04] LABS: Microalbumin,Random Urine 15.9 mg/L (NO RANGE EST.); Microalbumin:Creatinine Ratio 11.5 mg/g CRE (<30 mg/g CRE)
[2022-06-26 11:21] LABS: ALB/GLOB Ratio 1.1 RATIO (0.9-2.4); AST(SGOT) 21 U/L (15-37); Alanine Aminotransfer ALT/SGPT 25 U/L (16-61); Albumin, Serum 3.6 g/dL (3.2-5.0); Alkaline Phosphatase 75 U/L (45-117); Anion Gap 7 (5-15); BUN 17 mg/dL (7-18); Calcium,Total 9.2 mg/dL (8.5-10.1); Chloride 108 mmol/L (98-107); Cholesterol 248 mg/dL (200); EST Glomerular Filtration Rate 77 mL/min (>60); Est Glom Filt Rate - Afr Amer 93 mL/min (>60); Globulin 3.2 g/dL (2.2-4.2); Glucose 114 mg/dL (74-106); High Density Lipoprotein 74 mg/dL; PSA,Total - Annual Screen 1.92 ng/mL (0.00-4.00); Potassium 4.2 mmol/L (3.5-5.1); Protein, Total 6.8 g/dL (6.4-8.2); Sodium Level 140 mmol/L (136-145); Triglycerides 93 mg/dL; Very Low Density Lipoprotein 19 mg/dL (5-40)
== END | disposition home or self-care (01) ==
LOC: MFPLAB 09:08
PROVIDERS: PCP Family Medicine; Visit Provider Family Medicine
DX: C85.10 Unspecified B-cell lymphoma, unspecified site (principal); I10 Essential (primary) hypertension; Z12.5 Encounter for screening for malignant neoplasm of prostate
CPT/HCPCS: 36415; 80053; 80061; 82043; 82570; 84153; 85025; G0103

== ENCOUNTER → 2023-07-29 | Outpatient (CLI) | payer MEDICARE, OTHER, SELFPAY ==
[2023-07-29 10:14] LABS: Absolute Lymphocyte Count 1.69 X10^3/uL (0.83-4.51); Absolute Neutrophil Count 2.7 X10^3/uL (2.0-7.7); Basophil# 0.03 X10^3/uL; Basophil% 0.6 % (0-1); Eosinophil# 0.11 X10^3/uL; Eosinophils% 2.2 % (0-5); Hematocrit 46.9 % (40-54); Hemoglobin 14.7 g/dL (13.0-16.5); Lymphocyte # 1.69 X10^3/ul (0.83-4.51); Lymphocyte % 33.4 % (19-41); Mean Corp Hgb Conc 31.3 g/dL (32-36); Mean Corpuscular Hgb 28.6 pg (27.0-32.0); Mean Corpuscular Volume 91.2 fL (80-94); Monocyte# 0.54 X10^3/uL; Monocyte% 10.7 % (0-10); NRBC Flagged by Analyzer 0 % (0-5); Neutrophil # 2.68 X10^3/uL (2.7-7.7); Neutrophil % 52.9 % (47-70); Platelet Count 196 K/mm3 (150-450); RBC Distribution Width CV 13.4 % (11.6-14.6); RBC Distribution Width SD 45.1 fl (35.1-43.9); Red Blood Count 5.14 M/mm3 (4.6-6.2); White Blood Count 5.1 K/mm3 (4.4-11.0)
[2023-07-29 11:27] LABS: ALB/GLOB Ratio 1.1 RATIO (0.9-2.4); AST(SGOT) 19 U/L (15-37); Alanine Aminotransfer ALT/SGPT 20 U/L (16-61); Albumin, Serum 3.5 g/dL (3.2-5.0); Alkaline Phosphatase 70 U/L (45-117); Anion Gap 5 (5-15); BUN 20 mg/dL (7-18); BUN/Creat Ratio 16.9 RATIO (10-20); Calcium,Total 9.7 mg/dL (8.5-10.1); Chloride 110 mmol/L (98-107); Creatinine, Serum 1.18 mg/dL (0.70-1.30); EST Glomerular Filtration Rate 63 mL/min (>60); Est Glom Filt Rate - Afr Amer 77 mL/min (>60); Globulin 3.2 g/dL (2.2-4.2); Glucose 112 mg/dL (74-106); Protein, Total 6.7 g/dL (6.4-8.2); Sodium Level 140 mmol/L (136-145)
[2023-07-31 18:47] LABS: Microalbumin,Random Urine 27.8 mg/L (NO RANGE EST.); Microalbumin:Creatinine Ratio 8.6 mg/g CRE (<30 mg/g CRE)
== END | disposition home or self-care (01) ==
LOC: MFPLAB 08:57
PROVIDERS: PCP Family Medicine; Visit Provider Family Medicine
DX: C85.10 Unspecified B-cell lymphoma, unspecified site (principal); I10 Essential (primary) hypertension
CPT/HCPCS: 36415; 80053; 82043; 82570; 85025

== ENCOUNTER → 2024-07-12 | Outpatient (CLI) | payer MEDICARE, OTHER, SELFPAY ==
[2024-07-12 10:40] LABS: Absolute Lymphocyte Count 1.51 X10^3/uL (0.83-4.51); Absolute Neutrophil Count 2.7 X10^3/uL (2.0-7.7); Basophil# 0.03 X10^3/uL; Basophil% 0.6 % (0-1); Eosinophil# 0.05 X10^3/uL; Hematocrit 45.7 % (40-54); Hemoglobin 15.2 g/dL (13.0-16.5); Lymphocyte # 1.51 X10^3/ul (0.83-4.51); Lymphocyte % 31.5 % (19-41); Mean Corp Hgb Conc 33.3 g/dL (32-36); Mean Corpuscular Volume 90.1 fL (80-94); Monocyte# 0.46 X10^3/uL; Monocyte% 9.6 % (0-10); NRBC Flagged by Analyzer 0 % (0-5); Neutrophil # 2.73 X10^3/uL (2.7-7.7); Neutrophil % 57.1 % (47-70); Platelet Count 182 K/mm3 (150-450); RBC Distribution Width CV 13.6 % (11.6-14.6); RBC Distribution Width SD 45.2 fl (35.1-43.9); Red Blood Count 5.07 M/mm3 (4.6-6.2); White Blood Count 4.8 K/mm3 (4.4-11.0)
[2024-07-12 11:28] LABS: Microalbumin,Random Urine 14.6 mg/L (NO RANGE EST.); Microalbumin:Creatinine Ratio 55.1 mg/g CRE
[2024-07-12 11:32] LABS: ALB/GLOB Ratio 1.7 RATIO (0.9-2.4); AST(SGOT) 24 U/L (<=37); Alanine Aminotransfer ALT/SGPT 15 U/L (<=46); Albumin, Serum 4.2 g/dL (3.4-4.8); Alkaline Phosphatase 73 U/L (40-129); Anion Gap 11 (5-15); BUN 16 mg/dL (4-19); BUN/Creat Ratio 15.4 RATIO (10-20); Calcium,Total 9.9 mg/dL (7.6-11.0); Carbon Dioxide 22.7 mmol/L (21.0-32.0); Chloride 108 mmol/L (98-108); Cholesterol 238 mg/dL (<=200); Creatinine, Serum 1.04 mg/dL (0.70-1.20); EST Glomerular Filtration Rate 73 (>60); Globulin 2.5 g/dL (2.2-4.2); Glucose 112 mg/dL (70-99); High Density Lipoprotein 66 mg/dL; Low Density Lipoprotein Calc. 155 mg/dL; Potassium 4.1 mmol/L (3.3-5.1); Protein, Total 6.7 g/dL (5.9-8.4); Sodium Level 142 mmol/L (133-145); Total Bilirubin 0.53 mg/dL (0.00-1.30); Triglycerides 86 mg/dL; Very Low Density Lipoprotein 17 mg/dL (5-40); cholesterol:hdl ratio screen 3.62
== END | disposition home or self-care (01) ==
LOC: MFPLAB 08:37
PROVIDERS: PCP Family Medicine; Referring Provider Family Medicine; Visit Provider Family Medicine
DX: I10 Essential (primary) hypertension (principal); C85.10 Unspecified B-cell lymphoma, unspecified site; N40.2 Nodular prostate without lower urinary tract symptoms
CPT/HCPCS: 36415; 80053; 80061; 82043; 82570; 84153; 85025